=== PATIENT | female | born 1960 | race African-American/Black ===

== ENCOUNTER 2019-06-06 05:50 | Inpatient (IN) | payer OTHER ==
[2019-05-23 12:24] VITALS: BMI 40.8
[2019-06-06] MEDS ORDERED: CELECOXIB 200 MG CAPSULE PO ONE (06:44)
[2019-06-06] MEDS ORDERED: GABAPENTIN 300 MG CAPSULE (FP) PO ONE (06:44)
[2019-06-06] MEDS ORDERED: CEFAZOLIN 2 GM in DEXTROSE 5%-WATER - 50 ML IVPB ONE (06:44)
[2019-06-06] MEDS ORDERED: oxyCODONE HCL 10 MG SUSTAINED ACTING TABLET PO ONE (06:44)
[2019-06-06] MEDS ORDERED: TRANEXAMIC ACID 1000 MG/10 ML VIAL IVPUSH ONE (06:44)
[2019-06-06] MEDS ORDERED: PANTOPRAZOLE 40 MG TABLET (FP) PO ONE (06:46)
--- NOTE | 2019-06-06 07:26 | HP ---
Admitting History and Physical - Admission Chief Complaint: left knee osteoarthritis x years History of Present Illness: 58-year-old female presents in regard to her left knee. Long-standing history of left knee osteoarthritis. Patient complains of pain, limited range of motion , difficulty ambulating, and difficulty with activities of daily living. Patient has Michi conservative treatment measures including PO medications, injections, activity modification, and exercise programs. At this point, patient would like to proceed with surgical intervention-left total knee arthroplasty, MAKOplasty. History Source: Patient - Past Medical History Cardiovascular: Yes: HTN, Hyperlipdemia Endocrine: Yes: Diabetes Mellitus - Past Surgical History Additional Past Surgical History: Seat written history and physical. - Smoking History Smoking history: Never smoked Have you smoked in the past 12 months: No - Alcohol/Substance Use Hx Alcohol Use: Yes (OCCASIONAL) Home Medications - Allergies Allergies/Adverse Reactions: Allergies Allergy/AdvReac Type Severity Reaction Status Date / Time codeine Allergy Intermediate Hives Verified 05/23/19 12:09 Beef Containing Products AdvReac Intermediate Nausea Verified 05/23/19 12:45 chicken derived AdvReac Intermediate Nausea Verified 05/23/19 12:45 egg AdvReac Intermediate Nausea Verified 05/23/19 12:45 tomato AdvReac Intermediate Nausea Verified 05/23/19 12:45 - Home Medications Home Medications: Ambulatory Orders Atorvastatin Ca [Lipitor] 10 mg PO DAILY 05/23/19 Empagliflozin [Jardiance] 10 mg PO DAILY 05/23/19 Enalapril Maleate 5 mg PO DAILY 05/23/19 Exenatide [Byetta [Non-Formulary]] 10 mcg SQ BID 05/23/19 Glipizide 10 mg PO DAILY 05/23/19 Metformin HCl [Glucophage] 1,000 mg PO BID 05/23/19 Review of Systems - Review of Systems Musculoskeletal: reports: Crepitus (left knee), Decreased ROM (left knee), Joint Pain (left knee), Joint Swelling (lefr knee) Physical Examination Vital Signs: Vital Signs Temperature 98.7 F 06/06/19 06:51 Pulse Rate 58 L 06/06/19 06:51 Respiratory Rate 18 06/06/19 06:51 Blood Pressure 136/58 L 06/06/19 06:51 O2 Sat by Pulse Oximetry (%) Constitutional: Yes: Well Nourished, No Distress Eyes: Yes: Conjunctiva Clear HENT: Yes: Atraumatic, Normocephalic Neck: Yes: Supple Cardiovascular: Yes: Regular Rate and Rhythm Respiratory: Yes: Regular Gastrointestinal: Yes: Soft ...Rectal Exam: Yes: Deferred Musculoskeletal: Yes: Joint Stiffness (left knee), Joint Swelling (left knee) Assessment/Plan 58-year-old female presents in regard to her left knee. Long-standing history of left knee osteoarthritis. Patient complains of pain, limited range of motion , difficulty ambulating, and difficulty with activities of daily living. Patient has Michi conservative treatment measures including PO medications, injections, activity modification, and exercise programs. At this point, patient would like to proceed with surgical intervention-left total knee arthroplasty, MAKOplasty. Pros, cons, risks, and benefits of a left total knee arthroplasty were discussed with the patient at length. Patient confirms her understanding and consent to proceed with a left total knee arthroplasty, MAKOplasty.
[2019-06-06] MEDS ORDERED: ceFAZolin SODIUM 1 GM VIAL ONE ×3 (07:30→11:10)
[2019-06-06] MEDS ORDERED: VANCOMYCIN 1,000 MG VIAL (RESTRICTED TO ID ONLY) ONE (07:30)
[2019-06-06] MEDS ORDERED: SODIUM CHLORIDE 0.9% P/F 10 ML VIAL IJ ONE ×2 (07:32→08:50)
[2019-06-06] MEDS ORDERED: MIDAZOLAM HCL 2 MG/2 ML SINGLE DOSE VIAL ONE (07:32)
[2019-06-06] MEDS ORDERED: BUPIVACAINE LIPOSOME/PF (EXPAREL) 266 MG/20 ML VIAL ONE (07:32)
[2019-06-06] MEDS ORDERED: PHENYLEPHRINE HCL 10 MG/1 ML SINGLE DOSE VIAL ONE (08:05)
[2019-06-06] MEDS ORDERED: PROPOFOL 20 ML ONE (08:05)
[2019-06-06] MEDS ORDERED: SUCCINYLCHOLINE CHLORIDE 200 MG/10 ML SYRINGE ONE (08:05)
[2019-06-06] MEDS ORDERED: ePHEDrine SULFATE 50 MG/1 ML AMPULE ONE (08:06)
[2019-06-06] MEDS ORDERED: BUPIVACAINE HCL/PF 0.5% (5MG/ML) 10 ML VIAL ONE (08:11)
[2019-06-06] MEDS ORDERED: TRANEXAMIC ACID 1000 MG/10 ML VIAL ONE (09:17)
[2019-06-06] MEDS ORDERED: oxyCODONE HCL 5 MG TABLET PO PRN ×2 (12:25)
[2019-06-06] MEDS ORDERED: ACETAMINOPHEN 1000 MG/100 ML VIAL (NON FORMULARY) IVPB ONE ×2 (12:25→13:05)
[2019-06-06] MEDS ORDERED: ONDANSETRON 4 MG/2 ML VIAL IVPUSH PRN ×2 (12:33→12:41)
--- NOTE | 2019-06-06 12:39 | OP ---
Operative Note - Note: Operative Date: 06/06/19 Pre-Operative Diagnosis: left knee OA Operation: left JANELLE TKA Post-Operative Diagnosis: Same as Pre-op Surgeon: Adonay Menon Certified Nurse Aide: Michelle Vidal Anesthesia: Spinal Estimated Blood Loss (mls): 200
[2019-06-06] MEDS ORDERED: MAGNESIUM HYDROX 2400MG/30ML ORAL SUSPENSION 30 ML CUP PO PRN (12:41)
[2019-06-06] MEDS ORDERED: MAG HYDROX/AL HYDROX/SIMETH 30 ML UNIT-DOSE CUP PO PRN (12:41)
[2019-06-06] MEDS ORDERED: LACTATED RINGERS SOLUTION 1,000 ML IV SCH (12:45)
[2019-06-06] MEDS: traMADol HCL 50 MG TABLET PO SCH ×2 (13:20→21:00)
[2019-06-06] MEDS: KETOROLAC TROMETHAMINE 30 MG/1 ML VIAL IVPUSH SCH ×2 (13:20→21:00)
[2019-06-06] MEDS: SODIUM CHLORIDE 1,000 ML IV SCH (14:00)
[2019-06-06] MEDS: metFORMIN HCL 500 MG TABLET (FP) PO SCH (17:03)
[2019-06-06] MEDS: CEFAZOLIN 2 GM/D5W 2 GM/50 ML ML IVPB SCH (17:08)
[2019-06-06] MEDS: ACETAMINOPHEN 325 MG TABLET (FP) PO SCH (21:00)
[2019-06-06] MEDS ORDERED: EXENATIDE 10 MCG/0.04 ML SQ SCH (22:00)
[2019-06-06] MEDS: GABAPENTIN 300 MG CAPSULE (FP) PO SCH (22:32)
[2019-06-06] MEDS: CELECOXIB 200 MG CAPSULE PO SCH (22:32)
[2019-06-06] MEDS: ASCORBIC ACID 500 MG TABLET (FP) PO SCH (22:32)
[2019-06-06] MEDS: SENNOSIDES/DOCUSATE COMBO (SENNA PLUS) TABLET (UD) PO SCH (22:33)
[2019-06-07] MEDS: CEFAZOLIN 2 GM/D5W 2 GM/50 ML ML IVPB SCH (02:00)
[2019-06-07] MEDS: ACETAMINOPHEN 325 MG TABLET (FP) PO SCH ×4 (02:40→21:28)
[2019-06-07] MEDS: traMADol HCL 50 MG TABLET PO SCH ×4 (02:44→21:28)
[2019-06-07] MEDS: KETOROLAC TROMETHAMINE 30 MG/1 ML VIAL IVPUSH SCH ×2 (02:44→08:11)
[2019-06-07] MEDS: glipiZIDE 5 MG TABLET (FP) PO SCH (06:12)
[2019-06-07] MEDS: metFORMIN HCL 500 MG TABLET (FP) PO SCH ×2 (06:12→17:20)
[2019-06-07 07:48] LABS: HEMATOCRIT 33.6 % (32.4-45.2); HEMOGLOBIN 10.9 GM/dl (10.7-15.3); MCH 29.3 pg (25.7-33.7); MCHC 32.5 g/dl (32.0-36.0); MEAN CELL VOLUME 90.4 fl (80-96); MEAN PLT VOLUME 10.8 fl (7.5-11.1); PLATELET COUNT 157 K/MM3 (134-434); RBC 3.71 M/mm3 (3.60-5.2); RDW 12.9 % (11.6-15.6); WHITE BLOOD COUNT 7.6 K/mm3 (4.0-10.8)
[2019-06-07 07:55] LABS: CALCIUM 8.4 mg/dl (8.5-10); CREATININE 0.5 mg/dl (0.55-1.3); POTASSIUM 3.7 mmol/L (3.5-5.1)
[2019-06-07] MEDS: ASPIRIN 325 MG TABLET PO SCH (08:09)
[2019-06-07] MEDS: INSULIN (NOVOLOG) ASPART 100 UNITS/ML 10ML VIAL SQ SCH ×4 (09:03→17:20)
[2019-06-07] MEDS ORDERED: PATIENT'S OWN MEDICATION (NON-FORMULARY) (Empagliflozin [Jardiance] 10 MG) PO SCH (10:00)
[2019-06-07] MEDS: GABAPENTIN 300 MG CAPSULE (FP) PO SCH ×2 (10:50→21:28)
[2019-06-07] MEDS: ENALAPRIL MALEATE 5 MG TABLET (FP) PO SCH (10:50)
[2019-06-07] MEDS: PANTOPRAZOLE 40 MG TABLET (FP) PO SCH (10:50)
[2019-06-07] MEDS: ASCORBIC ACID 500 MG TABLET (FP) PO SCH ×2 (10:51→21:28)
[2019-06-07] MEDS: MULTIVITAMINS (DAILY MVI) TABLET (FP) PO SCH (10:51)
[2019-06-07] MEDS: ATORVASTATIN CA 10 MG TABLET (FP) PO SCH (10:51)
[2019-06-07] MEDS: CELECOXIB 200 MG CAPSULE PO SCH ×2 (10:51→21:28)
[2019-06-07] MEDS: SENNOSIDES/DOCUSATE COMBO (SENNA PLUS) TABLET (UD) PO SCH ×2 (10:51→21:28)
[2019-06-07] MEDS: SODIUM CHLORIDE 1,000 ML IV SCH (14:03)
--- NOTE | 2019-06-07 15:52 | PN ---
Progress Note (short form) - Note Progress Note: Post op day#1.Left TKR under spinal anesthesia with left adductor canal and slective tibial N block uneventful.Patient stable and c/o pain score of 4-5/10 on movement.No any anesthesia related problem.Patient DC from the anesthesia care.
[2019-06-07] MEDS ORDERED: INSULIN (NOVOLOG) ASPART 100 UNITS/ML 10ML VIAL ONE (17:18)
--- NOTE | 2019-06-08 | PN ---
Progress Note (short form) - Note Progress Note: Pt seen and examined. Doing well. AVSS Selected Entries 06/07/19 22:16 Temperature 98.9 F Pulse Rate 81 Respiratory 18 Rate Blood Pressure 133/53 L O2 Sat by Pulse 98 Oximetry (%) Oxygen Delivery Room Air Method Laboratory Tests 06/07/19 06/07/19 07:10 07:10 WBC 7.6 Hgb 10.9 Hct 33.6 Plt Count 157 Sodium 136 Potassium 3.7 Chloride 101 Carbon Dioxide 28 Anion Gap 7 L BUN 14.0 Creatinine 0.5 L Random Glucose 158 H Calcium 8.4 L Gen: NAD LLE: c/d/i, NVID A/P POD #1 s/p left JANELLE TKA PT/OOB WBAT LLE D/C home in AM
--- NOTE | 2019-06-08 00:05 | DS ---
Physical Examination Vital Signs: Vital Signs Temperature 98.9 F 06/07/19 22:16 Pulse Rate 81 06/07/19 22:16 Respiratory Rate 18 06/07/19 22:16 Blood Pressure 133/53 L 06/07/19 22:16 O2 Sat by Pulse Oximetry (%) 98 06/07/19 22:16 Labs: CBC, BMP 06/07/19 07:10 06/07/19 07:10 Discharge Summary Reason For Visit: LEFT KNEE JOINT OSTEOARTHRITIS Current Active Problems Osteoarthritis of left knee (Acute) Procedures: Principal: left JANELLE TKA Hospital Course: Admitted for elective surgery. Procedure performed without complications. Pt received postoperative antibiotic prophylaxis and DVT ppx. Ambulated with physical therapy. Stable for discharge home with outpatient followup. Condition: Stable - Instructions Diet, Activity, Other Instructions: Dr. Menon - Knee Replacement Instructions Keep the Aquacel dressing on until removed by Dr. Menon in 10-14 days - it is antibacterial and waterproof and you can shower with it on. Call the office for a follow-up appointment with Dr. Menon in 10-14 days. [phone] Take one Aspirin 325mg daily for 6 weeks to prevent blood clots in your legs. Take one Pantoprazole 40mg daily for 6 weeks to protect against heartburn and ulcers. Take Cephalexin (antibiotic) 3x/day for 10 days to help prevent skin infection. Take Celebrex 200mg twice daily for 30 days to reduce swelling and inflammation. Take a multivitamin, stool softener, and extra Vitamin C supplement daily. For pain: *Mild pain (1-3/10): Take 1 Tramadol tablet every 4 hours as needed. Moderate pain (4-6/10): Take 1 Tramadol tablet and 1 Percocet tablet every 4 hours as needed. Severe pain (7-10/10): Take 1 Tramadol tablet and 2 Percocet tablets every 4 hours as needed. Activity: You can put as much weight on the operative leg as you want. Right after you get home, there will be a physical therapist coming to your house to help you walk around and bend/straighten your knee. After your follow-up appointment, you will be sent for more intensive outpatient physical therapy which will include machines and equipment that the home therapist cannot bring to your house. Always use a walker or cane for balance and to prevent falls. Expect to see swelling/bruising from the operative site all the way down to your toes. Wear the compression stocking on the operative side during the day to minimize how much swelling there is in your foot/ankle. Don't wear the stocking at night. You don't have to wear a stocking on the other side. Disposition: [facility]/HOME HEALTH CARE - Home Medications Comprehensive Discharge Medication List: Ambulatory Orders Atorvastatin Ca [Lipitor] 10 mg PO DAILY 05/23/19 Empagliflozin [Jardiance] 10 mg PO DAILY 05/23/19 Enalapril Maleate 5 mg PO DAILY 05/23/19 Exenatide [Byetta [Non-Formulary] -] 10 mcg SQ BID 05/23/19 Glipizide 10 mg PO DAILY 05/23/19 Metformin HCl [Glucophage] 1,000 mg PO BID 05/23/19 Ascorbic Acid [Vitamin C -] 500 mg PO BID tablet 06/08/19 Aspirin [ASA -] 325 mg PO DAILY@0800 tablet 06/08/19 Celecoxib [CeleBREX -] 200 mg PO BID #60 capsule 06/08/19 Cephalexin Monohydrate [Keflex -] 500 mg PO TID #30 capsule 06/08/19 Multivitamins [Multivit ([facility] Formulary)] 1 tab PO DAILY tab 06/08/19 Oxycodone HCl/Acetaminophen [Percocet 5-325 mg Tablet] 1 - 2 tab PO Q4H PRN #60 tablet MDD 10 06/08/19 Pantoprazole Sodium [Protonix -] 40 mg PO DAILY #40 tablet.ec 06/08/19 Sennosides/Docusate Sodium [Pericolace -] 2 tablet PO BID tablet 06/08/19 traMADol HCL [Ultram -] 50 mg PO Q4H PRN #42 tablet MDD 6 06/08/19
[2019-06-08] MEDS: ACETAMINOPHEN 325 MG TABLET (FP) PO SCH ×3 (01:55→14:47)
[2019-06-08] MEDS: traMADol HCL 50 MG TABLET PO SCH ×3 (01:55→14:47)
[2019-06-08] MEDS: INSULIN (NOVOLOG) ASPART 100 UNITS/ML 10ML VIAL SQ SCH ×4 (01:56→16:27)
[2019-06-08] MEDS: glipiZIDE 5 MG TABLET (FP) PO SCH (06:45)
[2019-06-08] MEDS: metFORMIN HCL 500 MG TABLET (FP) PO SCH ×2 (06:46→16:27)
[2019-06-08 07:27] LABS: HEMOGLOBIN 10.9 GM/dl (10.7-15.3); MCHC 32.2 g/dl (32.0-36.0); MEAN PLT VOLUME 9.6 fl (7.5-11.1); PLATELET COUNT 141 K/MM3 (134-434); RBC 3.78 M/mm3 (3.60-5.2); WHITE BLOOD COUNT 8.4 K/mm3 (4.0-10.8)
[2019-06-08] MEDS: ASPIRIN 325 MG TABLET PO SCH (07:47)
[2019-06-08] MEDS: PANTOPRAZOLE 40 MG TABLET (FP) PO SCH (09:17)
[2019-06-08] MEDS: SENNOSIDES/DOCUSATE COMBO (SENNA PLUS) TABLET (UD) PO SCH (09:17)
[2019-06-08] MEDS: CELECOXIB 200 MG CAPSULE PO SCH (09:17)
[2019-06-08] MEDS: ATORVASTATIN CA 10 MG TABLET (FP) PO SCH (09:17)
[2019-06-08] MEDS: ASCORBIC ACID 500 MG TABLET (FP) PO SCH (09:17)
[2019-06-08] MEDS: MULTIVITAMINS (DAILY MVI) TABLET (FP) PO SCH (09:17)
[2019-06-08] MEDS: GABAPENTIN 300 MG CAPSULE (FP) PO SCH (09:17)
[2019-06-08] MEDS: ENALAPRIL MALEATE 5 MG TABLET (FP) PO SCH (09:17)
[2019-06-08 14:02] VITALS: BP 107/48; PULSE 71; TEMP 98.2
[2019-06-08] MEDS: SODIUM CHLORIDE 1,000 ML IV SCH (14:46)
--- NOTE | 2019-06-08 15:26 | PATH ---
Surgical Pathology Report Patient Name: BARRY MORRISSEY Med. Rec. #: [id number] /Age/Gender: 1960 (Age: 58) / F Account: [id number] Location: [facility] MED-SURG Taken: 06/06/2019 Received: 06/06/2019 Reported: 06/08/2019 Physicians: Adonay Menon M.D. Specimen(s) Received BONES LEFT KNEE Clinical History Left knee osteoarthritis Final Diagnosis BONE LEFT KNEE, EXCISION: DEGENERATIVE JOINT DISEASE, LEFT KNEE. Electronically Signed Lorenzo Collazo M.D. Gross Description Received in formalin labeled "bones left knee," is a 12.0 x 10.0 x 1.6 cm aggregate of multiple unoriented portions of bone and soft tissue, consistent with knee bones. There is a 2.1 cm greatest dimension area of eburnation identified. The remaining articular surfaces are burkett-brown and diffusely granular. The underlying trabecular bone is yellow and hard. Surveyor'S Assistant sections are submitted in one cassette, following decalcification. /06/07/2019 [facility]06/07/2019
== END 2019-06-08 17:40 | disposition home health service (06) | DRG 470 ==
LOC: FM/S 05:50
PROVIDERS: ADMIT Student in an Organized Health Care Education/Training Program; ATTEND Student in an Organized Health Care Education/Training Program
PROC: 8E0YXCZ Robotic Assisted Procedure of Lower Extremity (ICD-10-PCS; 2019-06-06)
PROC: 0SRD0JZ Replacement of Left Knee Joint with Synthetic Substitute, Open Approach (ICD-10-PCS; principal; 2019-06-06 09:17)
DX: M17.12 Unilateral primary osteoarthritis, left knee (principal); E11.9 Type 2 diabetes mellitus without complications; I10 Essential (primary) hypertension; E78.5 Hyperlipidemia, unspecified; Z79.84 Long term (current) use of oral hypoglycemic drugs
CPT/HCPCS: 36415; 73560-TC-LT-FY; 80048; 82962; 85027; 88304-TC; 88311-TC; 94660; 94760; 97116-GP; 97163-GP; J0131; J7030

== ENCOUNTER 2021-04-23 06:06 | Inpatient (IN) | payer OTHER ==
[2021-04-23] MEDS ORDERED: GABAPENTIN 300 MG CAPSULE PO ONE (06:15)
[2021-04-23] MEDS ORDERED: CEFAZOLIN 3 GM in DEXTROSE 5%-WATER - 50 ML IVPB ONE (06:15)
[2021-04-23] MEDS ORDERED: TRANEXAMIC ACID 1000 MG/10 ML VIAL IVPUSH ONE (06:15)
[2021-04-23] MEDS ORDERED: CELECOXIB 200 MG CAPSULE PO ONE (06:36)
[2021-04-23 06:59] VITALS: BMI 41.3
[2021-04-23] MEDS ORDERED: CELECOXIB 200 MG CAPSULE ONE (07:01)
[2021-04-23] MEDS ORDERED: BUPIVACAINE HCL/PF 0.5% (5MG/ML) 10 ML VIAL ONE (07:21)
[2021-04-23] MEDS ORDERED: BUPIVACAINE LIPOSOME/PF (EXPAREL) 266 MG/20 ML VIAL ONE (07:21)
[2021-04-23] MEDS ORDERED: SODIUM CHLORIDE 0.9% P/F 10 ML VIAL IJ ONE (07:21)
[2021-04-23] MEDS ORDERED: MIDAZOLAM HCL 2 MG/2 ML SINGLE DOSE VIAL ONE ×3 (07:21→09:20)
[2021-04-23] MEDS ORDERED: VANCOMYCIN 1,000 MG VIAL (RESTRICTED TO ID ONLY) ONE (07:33)
[2021-04-23] MEDS ORDERED: ceFAZolin SODIUM 1 GM VIAL ONE ×3 (07:33→08:58)
[2021-04-23] MEDS ORDERED: BUPIVACAINE HCL 50 ML ONE (07:46)
[2021-04-23] MEDS ORDERED: EPHEDRINE SULFATE/0.9% NACL/PF 50 MG/10 ML SYRINGE NR ONE (08:23)
[2021-04-23] MEDS ORDERED: TRANEXAMIC ACID 1000 MG/10 ML VIAL ONE ×2 (08:26→10:36)
[2021-04-23] MEDS ORDERED: oxyCODONE HCL 5 MG TABLET PO PRN (10:45)
[2021-04-23] MEDS ORDERED: ONDANSETRON 4 MG/2 ML VIAL IVPUSH PRN ×2 (10:47→12:26)
[2021-04-23] MEDS ORDERED: LACTATED RINGERS SOLUTION 1,000 ML IV SCH ×2 (11:00→12:30)
[2021-04-23] MEDS ORDERED: MAGNESIUM HYDROX 2400MG/30ML ORAL SUSPENSION 30 ML CUP PO PRN (12:26)
[2021-04-23] MEDS ORDERED: MAG HYDROX/AL HYDROX/SIMETH 30 ML UNIT-DOSE CUP PO PRN (12:26)
[2021-04-23] MEDS ORDERED: ETANERCEPT 50 MG/ML SQ SCH (12:45)
[2021-04-23] MEDS: oxyCODONE HCL 5 MG TABLET PO PRN ×3 (14:46→19:10)
[2021-04-23] MEDS: ACETAMINOPHEN 500 MG TABLET (FP) PO SCH ×2 (14:47→19:09)
[2021-04-23] MEDS ORDERED: morphine SULFATE 4 MG/ML VIAL ONE (15:22)
[2021-04-23] MEDS ORDERED: morphine SULFATE 4 MG/ML VIAL IVPB ONE (15:30)
[2021-04-23] MEDS ORDERED: CEFAZOLIN 1 GM/D5W 1 GM/50 ML BAG IVPB SCH ×2 (16:00→23:45)
[2021-04-23] MEDS: metFORMIN HCL 500 MG TABLET (FP) PO SCH (16:37)
[2021-04-23] MEDS: ASPIRIN 325 MG TABLET PO SCH (21:25)
[2021-04-23] MEDS: SENNOSIDES/DOCUSATE COMBO (SENNA PLUS) TABLET (UD) PO SCH (21:25)
[2021-04-23] MEDS ORDERED: CELECOXIB 200 MG CAPSULE PO SCH (22:00)
[2021-04-24] MEDS: ACETAMINOPHEN 500 MG TABLET (FP) PO SCH ×2 (00:14→06:15)
[2021-04-24] MEDS ORDERED: PT OWN MED DRAWER 7, Y5N ONE (06:10)
[2021-04-24] MEDS: metFORMIN HCL 500 MG TABLET (FP) PO SCH (06:15)
[2021-04-24] MEDS: oxyCODONE HCL 5 MG TABLET PO PRN (06:16)
[2021-04-24] MEDS ORDERED: glipiZIDE 10 MG TABLET (FP) PO SCH (07:00)
[2021-04-24] MEDS ORDERED: LIRAGLUTIDE 0.6 MG/0.1 ML PEN.INJCTR SQ SCH (07:00)
[2021-04-24] MEDS: ASPIRIN 325 MG TABLET PO SCH (08:00)
[2021-04-24 08:19] LABS: CREATININE 0.5 mg/dl (0.55-1.3)
[2021-04-24 08:50] LABS: HEMATOCRIT 37.3 % (32.4-45.2); HEMOGLOBIN 12.1 GM/dl (10.7-15.3); MCH 28.6 pg (25.7-33.7); MCHC 32.4 g/dl (32.0-36.0); MEAN CELL VOLUME 88.3 fl (80-96); MEAN PLT VOLUME 10.5 fl (7.5-11.1); PLATELET COUNT 176 10^3/uL (134-434); RBC 4.23 M/mm3 (3.60-5.2); WHITE BLOOD COUNT 7.3 K/mm3 (4.0-10.8)
[2021-04-24] MEDS: SENNOSIDES/DOCUSATE COMBO (SENNA PLUS) TABLET (UD) PO SCH (09:41)
[2021-04-24] MEDS ORDERED: ATORVASTATIN CA 10 MG TABLET (FP) PO SCH (10:00)
[2021-04-24] MEDS ORDERED: PATIENT'S OWN MEDICATION (NON-FORMULARY) (Empagliflozin [Jardiance] 10 MG Tablet) PO SCH (10:00)
[2021-04-24] MEDS ORDERED: PANTOPRAZOLE 40 MG TABLET PO SCH (10:00)
[2021-04-24] MEDS ORDERED: MULTIVITAMINS (DAILY MVI) TABLET (FP) PO SCH (10:00)
[2021-04-24] MEDS ORDERED: ENALAPRIL MALEATE 5 MG TABLET PO SCH (10:00)
[2021-04-24 14:26] VITALS: BP 143/67; PULSE 95; TEMP 99.8
== END 2021-04-24 15:11 | disposition home or self-care (01) | DRG 470 ==
LOC: FM/S 06:06
PROVIDERS: ADMIT Orthopaedic Surgery; ATTEND Orthopaedic Surgery
PROC: 8E0Y0CZ Robotic Assisted Procedure of Lower Extremity, Open Approach (ICD-10-PCS; 2021-04-23)
PROC: 0SRC0J9 Replacement of Right Knee Joint with Synthetic Substitute, Cemented, Open Approach (ICD-10-PCS; principal; 2021-04-23 08:34)
DX: M17.11 Unilateral primary osteoarthritis, right knee (principal)
CPT/HCPCS: 36415; 73560-TC-RT-FY; 80048; 82962; 85027; 94760; 97010-GP; 97116-GP; 97161-GP; C9803; U0003; U0005